=== PATIENT | male | born 1995 | race Caucasian/White ===

== ENCOUNTER 2021-01-17 23:34 | Emergency (ER) | payer SELFPAY | END 2021-01-18 00:50 | disposition home or self-care (01) | LOC: ERS 23:34 | DX: T59.811A Toxic effect of smoke, accidental (unintentional), initial encounter (principal); R06.00 Dyspnea, unspecified; F17.210 Nicotine dependence, cigarettes, uncomplicated; K21.9 Gastro-esophageal reflux disease without esophagitis; Z79.899 Other long term (current) drug therapy | CPT/HCPCS: 71045 ==